=== PATIENT | male | born 1950 | race Caucasian/White ===

== ENCOUNTER → 2020-04-30 | Outpatient (CLI) | payer MEDICARE, MEDICAID ==
[~2020-04-30] MED LIST: BACL-141 PO; FINA5TAB11 PO; IBUP-2029 PO; LORA-985 PO; LOSA100T32 PO; MONT10TA26 PO; PANT40TA4 PO; TAMS-11 PO
== END | disposition home or self-care (01) ==
LOC: LAB 09:28 → EDSTATUS 09:31 → LAB 09:32
DX: Z03.818 Encounter for observation for suspected exposure to other biological agents ruled out (principal)
CPT/HCPCS: U0003-CS

== ENCOUNTER 2020-05-01 05:38 | Day surgery (SDC) | payer MEDICARE, MEDICAID ==
[~2020-05-01] VITALS: Ht 180.3 cm; Wt 115.2 kg
[~2020-05-01 05:38] MED LIST changes: +CYCLOPENTOLATE HCL 1% OPHTH DROPS 2ML RIGHTEYE NR; +PHENYLEPHRINE HCL 10% OPHTH DROPS 5ML RIGHTEYE NR; +TROPICAMIDE 1% OPHTH DROPS 15ML RIGHTEYE NR
[2020-05-01] MEDS ORDERED: LACTATED RINGERS 1,000 ML IV SCH (07:00)
[2020-05-01] MEDS ORDERED: HYALURONATE SODIUM 10 MG/ML 0.55ML SYRINGE IO ONE (07:14)
[2020-05-01] MEDS ORDERED: BALANCED SALT IRRIG SOLN COMB1 500ML OP ONE (07:15)
[2020-05-01] MEDS ORDERED: FENTANYL CITRATE/PF 50MCG/ML 2ML VIAL ONE (07:30)
[2020-05-01] MEDS ORDERED: MIDAZOLAM HCL 2 MG/2 ML VIAL ONE (07:30)
[2020-05-01] MEDS ORDERED: CYCLOPENTOLATE HCL 1% OPHTH DROPS 2ML ONE (11:08)
[2020-05-01] MEDS ORDERED: BALANCED SALT IRRIG SOLN 15ML ONE (11:08)
[2020-05-01] MEDS ORDERED: CIPROFLOXACIN 0.3% OPHTH SOLN 2.5ML ONE (11:08)
[2020-05-01] MEDS ORDERED: PHENYLEPHRINE HCL 10% OPHTH DROPS 5ML ONE (11:08)
[2020-05-01] MEDS ORDERED: TROPICAMIDE 1% OPHTH DROPS 15ML ONE (11:08)
[2020-05-01] MEDS ORDERED: PREDNISOLONE ACETATE 1% OPHTH DROPS 5ML ONE (11:08)
[2020-05-01] MEDS ORDERED: LIDOCAINE HCL/PF 2% 20 MG/ML 10ML VIAL ONE (11:08)
[2020-05-01] MEDS ORDERED: TETRACAINE 0.5% OPHTH DROPS 4ML ONE (11:08)
== END 2020-05-01 09:35 | disposition home or self-care (01) ==
LOC: OR 05:38
PROVIDERS: ATTEND Ophthalmology
DX: H25.11 Age-related nuclear cataract, right eye (principal); H11.153 Pinguecula, bilateral; I10 Essential (primary) hypertension; J44.9 Chronic obstructive pulmonary disease, unspecified; E78.00 Pure hypercholesterolemia, unspecified; N40.0 Benign prostatic hyperplasia without lower urinary tract symptoms; Z79.899 Other long term (current) drug therapy; Z98.890 Other specified postprocedural states; Z90.49 Acquired absence of other specified parts of digestive tract; Z88.8 Allergy status to other drugs, medicaments and biological substances
CPT/HCPCS: 66984; J2250; J3010; J3490; V2632